=== PATIENT | female | born 1970 | race Two or more races ===

== ENCOUNTER 2022-10-22 07:22 | Outpatient (CLI) | payer OTHER | END 2022-10-22 07:25 | disposition home or self-care (01) | LOC: NUCLEAR 07:22 | PROVIDERS: ATTEND Acupuncturist | DX: M25.50 Pain in unspecified joint (principal) ==

== ENCOUNTER 2023-01-01 10:13 | Outpatient (CLI) | payer OTHER | END 2023-01-01 10:31 | disposition home or self-care (01) | LOC: SONOGRAMA 10:13 | DX: R13.10 Dysphagia, unspecified (principal) ==

== ENCOUNTER 2023-06-16 11:07 | Outpatient (CLI) | payer OTHER | END 2023-06-16 12:08 | disposition home or self-care (01) | LOC: RAD 11:07 | DX: M70.70 Other bursitis of hip, unspecified hip (principal); Z12.39 Encounter for other screening for malignant neoplasm of breast ==

== ENCOUNTER 2023-06-30 10:18 | Outpatient (CLI) | payer OTHER | END 2023-06-30 10:24 | disposition home or self-care (01) | LOC: MRI 10:18 | PROVIDERS: ATTEND Emergency Medicine | DX: M54.2 Cervicalgia (principal) | CPT/HCPCS: 72142 ==

== ENCOUNTER 2023-12-08 08:35 | Outpatient (CLI) | payer OTHER | END 2023-12-08 08:44 | disposition home or self-care (01) | LOC: RAD 08:35 | PROVIDERS: ATTEND Orthopaedic Surgery | DX: M50.00 Cervical disc disorder with myelopathy, unspecified cervical region (principal); M50.10 Cervical disc disorder with radiculopathy, unspecified cervical region ==

== ENCOUNTER 2024-05-23 13:41 | Outpatient (CLI) | payer OTHER | END 2024-05-23 13:50 | disposition home or self-care (01) | LOC: SONOGRAMA 13:41 | PROVIDERS: ATTEND Internal Medicine Endocrinology, Diabetes & Metabolism | DX: E04.1 Nontoxic single thyroid nodule (principal) ==

== ENCOUNTER 2024-08-30 11:03 | Outpatient (CLI) | payer OTHER | END 2024-08-30 11:05 | disposition home or self-care (01) | LOC: RAD 11:03 | PROVIDERS: ATTEND Orthopaedic Surgery | DX: M50.00 Cervical disc disorder with myelopathy, unspecified cervical region (principal); M50.10 Cervical disc disorder with radiculopathy, unspecified cervical region ==